=== PATIENT | female | born 1990 | race Caucasian/White ===

== ENCOUNTER 2018-07-12 08:10 | Day surgery (SDC) | payer MEDICAID ==
[~2018-07-12] VITALS: Ht 170.2 cm; Wt 81.6 kg
--- NOTE | ~2018-07-12 | HP ---
PATIENT: EDER ALMEIDA MEDICAL RECORD: [id number] ACCOUNT: [id number] LOCATION:[facility] : 86 ADMISSION DATE: 07/12/18 PCP: HISTORY AND PHYSICAL EXAMINATION HISTORY OF PRESENT ILLNESS: She is 28 years old. She has been having significant problems with obstructive adenotonsillar hypertrophy, symptoms at night, as well as chronic pharyngitis that has been going on for years. She is being admitted for tonsillectomy and adenoidectomy. PAST MEDICAL HISTORY: Otherwise fairly negative. CURRENT MEDICATIONS: None. ALLERGIES: No known drug allergies. PHYSICAL EXAMINATION: GENERAL: She is healthy-appearing. Her voice does sound consistent with severe tonsillar hypertrophy. EYES: Sclerae and conjunctivae are normal. EARS: Canals and TMs are normal. NOSE: No masses, polyps or drainage. ORAL CAVITY AND OROPHARYNX: Enormous 4+ kissing and overlapping tonsils, normal palate. NECK: No masses, no adenopathy. CHEST: Clear. CARDIOVASCULAR: Regular rate and rhythm, no murmur. EXTREMITIES: Normal. IMPRESSION: Severe adenotonsillar hypertrophy and some chronic pharyngitis as well. PLAN: Tonsillectomy and adenoidectomy. TRANSINT:[id number] Voice Confirmation ID: [id number] DOCUMENT ID: [id number] ANNABEL LOPEZ MD CC: [id number] DICTATION DATE: 07/08/18 151 QM CONSULTANT: 07/08/18 1534 [facility] [address] [place] [address]
--- NOTE | ~2018-07-12 | OP ---
PATIENT NAME: EDER ALMEIDA MEDICAL RECORD: [id number] :86 [facility] DATE: SURGEON: ANNABEL ENNIS MD DATE OF OPERATION: 07/12/2018 PREOPERATIVE DIAGNOSES: Obstructive adenotonsillar hypertrophy and chronic pharyngitis. POSTOPERATIVE DIAGNOSES: Obstructive adenotonsillar hypertrophy and chronic pharyngitis. PROCEDURE: Tonsillectomy and adenoidectomy. SURGEON: Annabel Ennis MD ANESTHESIA: General orotracheal. BLOOD LOSS: 4 cc. SPECIMENS: Right and left tonsil. COMPLICATIONS: None. DISPOSITION: Recovery stable. FINDINGS: Enormous 4+ kissing tonsils, 3+ adenoids. PROCEDURE NOTE: She was brought to the operating room and placed in supine position, sedated and intubated by anesthesia. The eyes were taped. Table was turned 90 degrees. Head drapes applied and she was positioned for tonsillectomy. Using a headlight, a Brenden-Venkata mouth gag was carefully inserted and elevated on a towel on her chest. The palate was examined and palpated was normal. A red rubber catheter was placed through the right side of the nose and grasped with tonsil clamp to retract the soft palate. Using a mirror, the nasopharynx was examined and suction cautery on a setting of 35 was used to ablate and suction the adenoid pad with no significant bleeding. The choanae and eustachian orifices were normal bilaterally. The red rubber catheter was let down and removed. The right tonsil was grasped at the superior pole with a straight Allis clamp. Spatula tip cautery on a setting of 9 was used to dissect out the tonsil along its capsule, preserving the anterior and posterior tonsillar pillar. The left tonsil was removed in the same fashion. Then, both sides of the nose were irrigated with saline. The pharynx was suctioned. Tonsillar fossae were agitated. Suction cautery on a setting of 20 was used to control minimal oozing. With the field clean and dry, the Brenden-Venkata mouth gag was let down and removed. She was awakened, extubated, and transported to recovery in good condition. No complications. TRANSINT:[id number] Voice Confirmation ID: [id number] DOCUMENT ID: [id number] OPERATIVE REPORT [id number] EDER ALMEIDA ANNABEL ENNIS MD CC: [id number] DICTATION DATE: 07/12/18 1250 TOW BOAT CAPTAIN: 07/12/18 1335 [facility] [address] [place] [id number]
[2018-07-12 08:28] LABS: HEMATOCRIT 39.4 % (36.0-48.0); HEMOGLOBIN 13.1 g/dL (12-16); MCH 29.1 pg (26.0-34.0); MCHC 33.2 g/dL (31.0-37.0); MCV 87.6 fL (80.0-100.0); MEAN PLATELET VOLUME 11.1 fL (7.4-10.4); RBC 4.5 10x6/uL (4.00-5.40); RDW 12.9 % (11.5-14.5); WBC 7.5 10x3/uL (4.8-10.8)
[2018-07-12] MEDS ORDERED: PRISTIQ50 MG (09:06)
[2018-07-12 09:12] VITALS: BP 96/64; Ht 170.2 cm; Wt 81.6 kg
--- NOTE | 2018-07-12 13:19 | NUR ---
IV IN RIGHT AC DISCONTINUED DUE TO INFILTRATION. 20GA IV INITIATED IN LEFT AC X 2 ATTEMPTS @ 1305.
== END 2018-07-12 16:05 | disposition home or self-care (01) ==
LOC: D.OPS 08:10 → D.PAN 09:15 → D.OPS 09:45
PROVIDERS: Anesthesiology; ATTEND Otolaryngology
DX: J35.01 Chronic tonsillitis (principal); J03.90 Acute tonsillitis, unspecified; J35.3 Hypertrophy of tonsils with hypertrophy of adenoids